=== PATIENT | female | born 1970 | race Caucasian/White ===

== ENCOUNTER 2021-03-30 12:02 | Outpatient (CLI) | payer BC | END 2021-03-30 12:03 | disposition home or self-care (01) | LOC: CSHMAMMO 12:02 | PROVIDERS: ATTEND Family Medicine | DX: Z12.31 Encounter for screening mammogram for malignant neoplasm of breast (principal); N63.21 Unspecified lump in the left breast, upper outer quadrant; N64.89 Other specified disorders of breast | CPT/HCPCS: 77063; 77067 ==

== ENCOUNTER 2021-04-05 13:49 | Outpatient (CLI) | payer BC | END 2021-04-05 13:50 | disposition home or self-care (01) | LOC: CSHULT 13:49 | PROVIDERS: ATTEND Family Medicine | DX: N63.20 Unspecified lump in the left breast, unspecified quadrant (principal); N60.02 Solitary cyst of left breast ==

== ENCOUNTER 2023-07-13 13:56 | Outpatient (CLI) | payer BC | END 2023-07-13 13:57 | disposition home or self-care (01) | LOC: CSHMAMMO 13:56 | PROVIDERS: ATTEND Family Medicine | DX: Z12.31 Encounter for screening mammogram for malignant neoplasm of breast (principal) | CPT/HCPCS: 77063; 77067 ==